=== PATIENT | female | born 1980 | race Caucasian/White ===

== ENCOUNTER 2020-10-31 16:08 | Inpatient (IN) | payer MEDICARE, MEDICAID, SELFPAY ==
--- NOTE | 2020-10-31 | ECG_ITS ---
Test Reason : ADMISSION Blood Pressure : / mmHG Vent. Rate : 061 BPM Atrial Rate : 061 BPM P-R Int : 150 ms QRS Dur : 096 ms QT Int : 436 ms P-R-T Axes : 007 080 048 degrees QTc Int : 438 ms Normal sinus rhythm Normal ECG No previous ECGs available Referred By: Melida Little Electronically Signed By:SHIVAM MOREJON
[2020-10-31 17:41] VITALS: BP 105/70; PULSE 83; TEMP 36.4
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
[2020-10-31 18:06] VITALS: BMI 24.4
--- NOTE | 2020-10-31 20:43 | PC.NURSE ---
[facility] pharmacy contacted to verify medications. Pharmacist reported last prescription filled was for Narcan nasal spray on 07/19/2019. [facility] has no record of Eliquis or other blood thinner. Pt. reports she was prescribed eliquis by Dr. Umana in [place] for a history of blood clots. She stated that she hasn't used it in a long time, approximately 2 years ago. Pt. reports she has not filled any prescriptions at [facility] for over a year. Pt. reports she used to take ativan 1mg at bedtime. It was prescribed by a Dr. Anderson. Last taken over a year ago. Pt. reports the ativan helps her to sleep. scallop dredger provider notified of this information.
[2020-10-31] MEDS: LORazepam 1 MG TABLET PO (21:38)
--- NOTE | 2020-10-31 22:38 | PC.NURSE ---
Pt. found to have an IV in right wrist. bilingual call center representative provider Melida Little informed of IV. RN removed IV. Dry dressing placed over IV site. Skin warm and dry. No drainage or swelling. Pt. tolerated well. Pt. tearful, depressed and anxious after call from daughter. Pt. refused to see hospitalist and to have an EKG due to anxiety and mood lability. Pt. reports she will do both tomorrow. Pt. medicated with ativan 1mg PO at 2138 with positive effect. Pt. appears to be asleep on safety checks.
[2020-11-01] MEDS: LORazepam 1 MG TABLET PO ×2 (03:20→23:15)
[2020-11-01] MEDS: hydrOXYzine HCL 25 MG TABLET PO (04:07)
--- NOTE | 2020-11-01 06:22 | PM.EVENT ---
Event Note Date of Service: 11/01/20 Event Note: Attempted to see patient, patient was not feeling well and did not want a see me If you need us to re-evaluate patient please re-consult
[2020-11-01 08:32] LABS: MANUAL DIFF FLAG NO
[2020-11-01 08:34] LABS: Basophils Percent Auto 0.2 % (0-2); Eosinophils Absolute Auto 0.1 X10*3/uL (0.0-0.4); Eosinophils Percent Auto 1.7 % (0-4); Hematocrit 39.8 % (37-47); Hemoglobin 13.3 g/dl (12.0-16.0); Imm Gran Abs Auto 0.02 X10*3/uL (0.00-0.03); Imm Gran Pct Auto 0.4 % (0.0-0.4); Lymphocytes Absolute Auto 1.9 X10*3/uL (1.2-4.9); Mean Corpuscular HGB Conc 33.4 g/dl (31.0-35.0); Mean Corpuscular Hemoglobin 28.9 pg (27.0-33.0); Mean Corpuscular Volume 86.3 fL (80-98); Mean Platelet Volume 11.5 fL (9.4-12.3); Monocytes Absolute Auto 0.3 X10*3/uL (0.1-1.2); Monocytes Percent Auto 5.5 % (2-11); Neutrophils Absolute Auto 2.9 X10*3/uL (2.0-8.3); Neutrophils Percent Auto 55.2 % (45-73); Platelet Count 154 X10*3/uL (160-400); Red Blood Count 4.61 X10*6/uL (4.20-5.50); Red Cell Distribution Width 13.6 % (11.0-16.0); White Blood Count 5.2 X10*3/uL (4.8-10.8)
[2020-11-01 09:04] LABS: Alanine Aminotransferase 15 U/L (0-31); Alkaline Phosphatase 52 U/L (39-117); Anion Gap 12 (12-20); Aspartate Amino Transferase 14 U/L (5-31); Bilirubin Total 0.8 mg/dL (0.0-1.0); Blood Urea Nitrogen 19 mg/dL (9-16); Carbon Dioxide 24 mmol/L (22-29); Chloride 107 mmol/L (96-108); Cholesterol 192 mg/dL; Creatinine Clr Calc Pharmacy 100.9; Estimated Glomerular Filt Rate > 60; Glucose Fasting 75 mg/dL (60-99); HDL Cholesterol 40 mg/dL; LDL Cholesterol Calculated 134 mg/dl; Potassium 3.9 mmol/L (3.3-5.1); Sodium 139 mmol/L (135-145); Total Protein 6.4 g/dL (6.5-8.0); Triglycerides 92 mg/dL
[2020-11-01 09:24] LABS: Free T4 (Free Thyroxine) 0.87 ng/dL (0.71-1.85); Thyroid Stimulating Hormone 0.68 uIU/mL (0.32-4.0)
[2020-11-01 09:39] LABS: Estimated Average Glucose 94 mg/dL; Hemoglobin A1c % 4.9 %
[2020-11-01 10:10] LABS: Folate 10.8 ng/mL (> or = 4.0); Vitamin B12 450 pg/mL (200-900)
--- NOTE | 2020-11-01 10:25 | P.PNPSI_ITS ---
Subjective Subjective Date of Service: 11/01/20 Reason For Visit: unspecified depressive disorder Diagnostics Vital Signs (24Hr): Vital Signs - 24 hr 10/31/20 17:41 Temperature 97.5 F Pulse Rate 83 Blood Pressure 105/70 Body Mass Index 24.4 Labs Results: 11/01/20 08:22 11/01/20 08:23 Labs: Laboratory Results - last 48 hr 11/01/20 11/01/20 11/01/20 08:22 08:23 08:23 WBC 5.2 RBC 4.61 Hgb 13.3 Hct 39.8 MCV 86.3 MCH 28.9 MCHC 33.4 RDW 13.6 Plt Count 154 L MPV 11.5 Immature Gran % (Auto) 0.4 Neut % (Auto) 55.2 Lymph % (Auto) 37.0 [place] % (Auto) 5.5 Eos % (Auto) 1.7 Baso % (Auto) 0.2 Lymph # (Auto) 1.9 [place] # (Auto) 0.3 Eos # (Auto) 0.1 Baso # (Auto) 0.0 Abs Immat Gran (auto) 0.02 Absolute Neuts (auto) 2.9 Absolute Nucleated RBC 0.000 Nucleated RBC % (auto) 0.0 Sodium 139 Potassium 3.9 Chloride 107 Carbon Dioxide 24 Anion Gap 12 BUN 19 H Creatinine 0.68 Estim Creat Clear Calc 100.9 Estimated GFR > 60 Fasting Glucose 75 Estimat Average Glucose 94 Hemoglobin A1c % 4.9 Calcium 9.0 Magnesium 2.0 Total Bilirubin 0.8 AST 14 ALT 15 Alkaline Phosphatase 52 Total Protein 6.4 L Albumin 4.0 Triglycerides 92 Cholesterol 192 LDL Cholesterol, Calc 134 HDL Cholesterol 40 Vitamin B12 Folate TSH 0.68 Free T4 0.87 11/01/20 08:23 WBC RBC Hgb Hct MCV MCH MCHC RDW Plt Count MPV Immature Gran % (Auto) Neut % (Auto) Lymph % (Auto) [place] % (Auto) Eos % (Auto) Baso % (Auto) Lymph # (Auto) [place] # (Auto) Eos # (Auto) Baso # (Auto) Abs Immat Gran (auto) Absolute Neuts (auto) Absolute Nucleated RBC Nucleated RBC % (auto) Sodium Potassium Chloride Carbon Dioxide Anion Gap BUN Creatinine Estim Creat Clear Calc Estimated GFR Fasting Glucose Estimat Average Glucose Hemoglobin A1c % Calcium Magnesium Total Bilirubin AST ALT Alkaline Phosphatase Total Protein Albumin Triglycerides Cholesterol LDL Cholesterol, Calc HDL Cholesterol Vitamin B12 450 Folate 10.8 TSH Free T4 Medications Medications Current Medications Generic Name Dose Route Start Last Admin Trade Name Freq PRN Reason Stop Dose Admin Al Hydroxide/Mg Hydroxide 30 ml 10/31/20 18:09 Magnesium Hydrox/Alum Hydrox 30 Ml Oral.Susp PO Q6H PRN Heartburn/Nausea Hydroxyzine HCl 25 mg 10/31/20 18:09 11/01/20 04:07 Hydroxyzine Hcl 25 Mg Tablet PO 25 mg BEDTIME PRN Administration Anxiety Lorazepam 1 mg 10/31/20 21:11 11/01/20 03:20 Lorazepam 1 Mg Tablet PO 1 mg Q6H PRN Administration Anxiety Magnesium Hydroxide 30 ml 10/31/20 18:09 Milk Of Magnesia 30 Ml Oral.Susp PO DAILY PRN Constipation Trazodone HCl 50 mg 10/31/20 18:09 Trazodone Hcl 50 Mg Tablet PO BEDTIME PRN Insomnia Allergies Allergies Allergy/AdvReac Type Severity Reaction Status Date / Time heparin Allergy Intermediate Unknown Verified 10/31/20 17:38 Assessment & Plan Greater than 50% of the session was spent on counseling and/or coordination of care
--- NOTE | 2020-11-01 10:27 | P.HPPS_ITS ---
HPI Chief Complaint: unspecified depressive disorder Sources of Information: patient interviewed, chart reviewed and crisis/core team assessment reviewed HPI Subjective Notes: [place] Warning and Conditional Voluntary Narrative: Patient is a 40-year-old female with history of mood lability who presents after intentional overdose with suicidal intent. Patient is lying in bed with her eyes closed. She is not impolite but says she has a migraine headache and does not want to talk right now, saying that keeping her eyes closed and rest or really the only things that help her resolve. [employer] Commissioner offered medication for headache but patient declined. Though she said she did not want to talk, she was willing to say that she is no longer suicidal. She says that she does not abuse alcohol and only has 2 drinks a given night and only does that twice a week; she reports she took a half bottle of benzos in overdose attempt however she denies using benzodiazepines daily. Patient denies other drug abuse. She endorses auditory hallucinations but only when she is mad... or drinking alcohol, or emotionally upset. She reports she has not been on Eliquis in a year however she is not interested in taking that right now. Patient intermittently looked at speech writer but closed her eyes again and said something to the effect of I am sorry but just can not talk right now. Interview concluded. Patient is currently not a reliable historian. ED note says that patient made concerning statements on-line. When her friend went to find her she found patient unresponsive outside of her apartment and apparently took her to the emergency room. Patient reported she drank alcohol and took a handful pills in a suicide attempt. It is reported she said she was angry she did not . Past Psychiatric History: Deferred until patient can participate in interview Medical Evaluation Reviewed: Hospitalist Ezequiel Pending [facility] Medical History (Updated 11/01/20 @ 16:52 by Johnathan Lux MD) Depression Family History: Unknown; Deferred for now Social History: Apparently patient lives alone in her own apartment Substance History: Unknown; deferred Trauma History: Unknown; deferred Diagnostics Vital Signs (24Hr): Vital Signs - 24 hr 10/31/20 17:41 Temperature 97.5 F Pulse Rate 83 Blood Pressure 105/70 Body Mass Index 24.4 Labs Results: 11/01/20 08:22 11/01/20 08:23 Labs: Laboratory Results - last 48 hr 11/01/20 11/01/20 11/01/20 08:22 08:23 08:23 WBC 5.2 RBC 4.61 Hgb 13.3 Hct 39.8 MCV 86.3 MCH 28.9 MCHC 33.4 RDW 13.6 Plt Count 154 L MPV 11.5 Immature Gran % (Auto) 0.4 Neut % (Auto) 55.2 Lymph % (Auto) 37.0 [place] % (Auto) 5.5 Eos % (Auto) 1.7 Baso % (Auto) 0.2 Lymph # (Auto) 1.9 [place] # (Auto) 0.3 Eos # (Auto) 0.1 Baso # (Auto) 0.0 Abs Immat Gran (auto) 0.02 Absolute Neuts (auto) 2.9 Absolute Nucleated RBC 0.000 Nucleated RBC % (auto) 0.0 Sodium 139 Potassium 3.9 Chloride 107 Carbon Dioxide 24 Anion Gap 12 BUN 19 H Creatinine 0.68 Estim Creat Clear Calc 100.9 Estimated GFR > 60 Fasting Glucose 75 Estimat Average Glucose 94 Hemoglobin A1c % 4.9 Calcium 9.0 Magnesium 2.0 Total Bilirubin 0.8 AST 14 ALT 15 Alkaline Phosphatase 52 Total Protein 6.4 L Albumin 4.0 Triglycerides 92 Cholesterol 192 LDL Cholesterol, Calc 134 HDL Cholesterol 40 Vitamin B12 Folate TSH 0.68 Free T4 0.87 11/01/20 08:23 WBC RBC Hgb Hct MCV MCH MCHC RDW Plt Count MPV Immature Gran % (Auto) Neut % (Auto) Lymph % (Auto) [place] % (Auto) Eos % (Auto) Baso % (Auto) Lymph # (Auto) [place] # (Auto) Eos # (Auto) Baso # (Auto) Abs Immat Gran (auto) Absolute Neuts (auto) Absolute Nucleated RBC Nucleated RBC % (auto) Sodium Potassium Chloride Carbon Dioxide Anion Gap BUN Creatinine Estim Creat Clear Calc Estimated GFR Fasting Glucose Estimat Average Glucose Hemoglobin A1c % Calcium Magnesium Total Bilirubin AST ALT Alkaline Phosphatase Total Protein Albumin Triglycerides Cholesterol LDL Cholesterol, Calc HDL Cholesterol Vitamin B12 450 Folate 10.8 TSH Free T4 Meds/Allergies Meds Home Medications Acetaminophen (Acetaminophen 325 Mg Tablet) 650 mg PO Q6H PRN PRN Reason: pain/headache Last Admin: 11/01/20 15:07 Dose: 650 mg Documented by: Al Hydroxide/Mg Hydroxide (Magnesium Hydrox/Alum Hydrox 30 Ml Oral.Susp) 30 ml PO Q6H PRN PRN Reason: Heartburn/Nausea Hydroxyzine HCl (Hydroxyzine Hcl 25 Mg Tablet) 25 mg PO BEDTIME PRN PRN Reason: Anxiety Last Admin: 11/01/20 04:07 Dose: 25 mg Documented by: Lorazepam (Lorazepam 1 Mg Tablet) 1 mg PO Q6H PRN PRN Reason: Anxiety Last Admin: 11/01/20 03:20 Dose: 1 mg Documented by: Magnesium Hydroxide (Milk Of Magnesia 30 Ml Oral.Susp) 30 ml PO DAILY PRN PRN Reason: Constipation Trazodone HCl (Trazodone Hcl 50 Mg Tablet) 50 mg PO BEDTIME PRN PRN Reason: Insomnia Allergies Allergies Allergy/AdvReac Type Severity Reaction Status Date / Time heparin Allergy Intermediate Unknown Verified 10/31/20 17:38 Mental Status Exam Mental Status Exam Narrative: Pt is alert and oriented; pt lying in bed with eyes closed; behavior is u ncooperative; dressed: under sheets; mood is described as not good and affect congruent; limted eye contact; Speech is slowed, intermittent; not pressured; psychomotor retardation present; thought process is organized and goal directed. Thought content is on dealing with headache; cannot at this time assess for delusional content, paranoid ideations or grandiosity; denies any SI/HI. There is no evidence of perceptual disturbance. ?Patients insight and judgment are impaired. Assessment & Plan Assessment & Plan (1) Depression: Status: Acute Code(s): F32.9 - Major depressive disorder, single episode, unspecified Assessment and Plan: IMPRESSION: Patient is a 40-year-old female with history of mood lability who presents after intentional overdose with suicidal intent. Currently patient is not a reliable historian as she is dealing with a migraine headache and did not feel up to participating in interview. Patient currently denies SI; denies drug abuse or alcohol abuse; denies auditory hallucinations except when emotionally upset. ED note reports intentional overdose with alcohol and pills which patient says were benzos, though she denies taking them daily. Patient admitted for safety and observation. Currently will diagnose her with depression, unspecified until history can be better clarified PLAN: Patient initially signed CV Patient then signed 3 day Acetaminophen added for headache Patient has been off Eliquis for over year; currently she does not want to restart her. Will revisit this again when she is more open to talking Informed Consent: understands Reason for continued inpatient stay Substantial Risk for: harm to self
[2020-11-01 14:10] VITALS: BP 103/63; PULSE 56
[2020-11-01] MEDS: Acetaminophen 325 MG TABLET 650 MG PO (15:07)
[2020-11-01 18:18] VITALS: BP 110/69; PULSE 60; RESP 16; TEMP 36.3; O2SAT 99
[2020-11-01] MEDS: traZODone HCL 50 MG TABLET PO (23:15)
[2020-11-02] MEDS: LORazepam 1 MG TABLET PO (05:35)
[2020-11-02 06:00] VITALS: BP 130/67; PULSE 72; RESP 16; TEMP 36.3; O2SAT 97
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
[2020-11-02] MEDS: Acetaminophen 325 MG TABLET 650 MG PO (11:36)
[2020-11-02] MEDS: hydrOXYzine HCL 25 MG TABLET PO (11:36)
--- NOTE | 2020-11-02 16:21 | PM.IMCN ---
History of Present Illness Data of Consult Service Date: 11/02/20 Primary Care Provider: Unknown Physician HPI Reason for consult: Medical evaluation A a 40 years old lady with PMH of depression who presented to the hospital after intentional overdose with suicidal intent. The patient was seen in her room. She reported that she has no medical problems and she did not see a physician in years. She does not take any medication regularly. Denies alcohol intake. Presented to the hospital after taking benzos in overdose attempt. During the interview I noticed her elbows rashes. When I asked about as he says he has psoriasis but she does not take any medication for it she did not see any doctor in years. She is not the best historian. Review of Systems Review of Systems: No fever, chills or weakness No chest pain, palpitation No shortness of breath or coughing No abdominal pain, nausea or vomiting No urinary symptoms No any rash or wounds PMFSH Medical History Depression Migraine Social History Household Members: Significant Other Housing: House Do you presently have visiting nurse or other home services: No Patient Tobacco Use Status: Current everyday Tobacco user Tobacco use type: Cigarette Cigarette Packs Per Day: 2 Cigarettes Per Day: 40.0 Smoked in Last 30 Days: Yes e-Cigarette/Vaping Use: Never Used Patient Interested in Nicotine Replacement: Yes Patient Given Instructions on How to Stop Smoking: No Second Hand Smoke Exposure: No Use of substances other than those prescribed or required for medical reasons: No Currently Displaying Signs/Symptoms of Drug Intoxication Withdrawal: No Have you been hit, kicked, punched, or otherwise hurt by someone within the past year? If so, by whom?: No Do you feel safe in your current relationship?: Yes Is there a partner from a previous relationship who is making you feel unsafe now?: No Are you made to feel afraid or neglected: No Advance Directives: No Advance Directives Information Provided: No Do you have thoughts of harming others: None Do you have a plan to hurt others: No Plan Recently lost weight without trying: Yes Eating poorly because of decreased appetite: No Nutrition Risks: No Nutritional Risk Patient : No : No Poor oral hygiene: No service: No Sexual orientation: Straight/Heterosexual Meds Allergies Allergy/AdvReac Type Severity Reaction Status Date / Time heparin Allergy Intermediate Unknown Verified 10/31/20 17:38 Active Medications: Current Medications Generic Name Dose Route Start Last Admin Trade Name Freq PRN Reason Stop Dose Admin Acetaminophen 650 mg 11/01/20 14:31 11/02/20 11:36 Acetaminophen 325 Mg Tablet PO 650 mg Q6H PRN Administration pain/headache Al Hydroxide/Mg Hydroxide 30 ml 10/31/20 18:09 Magnesium Hydrox/Alum Hydrox 30 Ml Oral.Susp PO Q6H PRN Heartburn/Nausea Apixaban 5 mg 11/03/20 09:00 Apixaban 5 Mg Tablet PO DAILY SONAM Hydroxyzine HCl 25 mg 10/31/20 18:09 11/02/20 11:36 Hydroxyzine Hcl 25 Mg Tablet PO 25 mg BEDTIME PRN Administration Anxiety Lorazepam 0.5 mg 11/02/20 14:29 Lorazepam 0.5 Mg Tablet PO BID PRN Anxiety Magnesium Hydroxide 30 ml 10/31/20 18:09 Milk Of Magnesia 30 Ml Oral.Susp PO DAILY PRN Constipation Prazosin HCl 1 mg 11/02/20 21:00 Prazosin Hcl 1 Mg Capsule PO BEDTIME [facility] Protocol Trazodone HCl 50 mg 10/31/20 18:09 11/01/20 23:15 Trazodone Hcl 50 Mg Tablet PO 50 mg BEDTIME PRN Administration Insomnia Trazodone HCl 50 mg 11/02/20 21:00 Trazodone Hcl 50 Mg Tablet PO BEDTIME [facility] Home Medications Medication Instructions Recorded Confirmed Last Taken Type No Known Home Meds 10/31/20 10/31/20 Unknown History Physical Exam Vital Signs and Narrative: Vital Signs: Last Vital Signs Temp 97.3 F 11/02/20 06:00 Pulse 72 11/02/20 06:00 Resp 16 11/02/20 06:00 BP 130/67 11/02/20 06:00 Pulse Ox 97 11/02/20 06:00 Body Mass Index 24.4 Const: Other: Constitutional : Alert, oriented, not in distress Neck : Normal inspection, Supple Cardiovascular : RRR, S1 S2, no lower extremity edema Respiratory : Good bilateral air entry, no crackles, wheezes or rhonchi Gastrointestinal: soft, lax, Normal bowel sounds, Non tender Skin : Warm, Dry, plaque like rashes in both elbows Neurological : Alert & oriented x3, No focal deficit Results Labs CBC and Chem 7: 11/01/20 08:22 11/01/20 08:23 Assessment and Plan (1) Suicidal intent: Status: Acute A a 40 years old lady with PMH of depression who presented to the hospital after intentional overdose with suicidal intent. Hospitalist team was asked to evaluate the patient for medical problems. Depression, suicidal intent Under the care psychiatry team No contraindication for usage of ECT therapy if needed for treatment Psoriasis Patient will need to follow-up with PCP or rheumatology as outpatient Thank you for the consult, please contact hospitalist team for any further questions.
[2020-11-02] MEDS: Apixaban 5 MG TABLET PO (16:26)
--- NOTE | 2020-11-02 16:38 | PC.NURSE ---
Pt verbalized that she is not interested in nicotine replacement at this time.
[2020-11-02 20:15] VITALS: BP 141/67; PULSE 85
[2020-11-02 20:31] VITALS: BP 141/67; PULSE 85
[2020-11-02] MEDS: traZODone HCL 50 MG TABLET PO (20:31)
[2020-11-02] MEDS: Prazosin HCL 1 MG CAPSULE PO (20:31)
[2020-11-03] MEDS: LORazepam 0.5 MG TABLET PO ×2 (02:33→14:17)
[2020-11-03] MEDS: traZODone HCL 50 MG TABLET PO ×2 (03:04→20:43)
[2020-11-03 06:00] VITALS: BP 118/83; PULSE 87; RESP 16; TEMP 36.1; O2SAT 99
[2020-11-03] MEDS: Amphetamine Mixed Salts 10 MG TABLET PO ×2 (08:51→14:17)
--- NOTE | 2020-11-03 10:08 | P.PNPSI_ITS ---
Subjective Subjective Date of Service: 11/03/20 Reason For Visit: unspecified depressive disorder Interim History: Pt seen on 11/03/20 Patient reports feeling better. She says she still depressed but definitely feels the depression lifting; she denies any SI at all. Patient says she is eag er to get back into therapy and is grateful that this is being set up by social Work. Patient reported trouble sleeping last night although she fell asleep initially with trazodone. She woke up thinking about her life, her family. She said she has been feeling sad about the fact that she upset her family, but she does not see this as a negative thing and reports overall positive thoughts about working to fix this. Patient asked for extra p.r.n. trazodone for help with sleep. She also agrees to increase in prazosin since she had a nightmare last night; she says the 15 minutes bed checks are also triggering for her since it relates to her history of trauma denies any medication side effects. Patient asks about quitting smoking and says that Wellbutrin worked very well for her in the past, helping her fully quit. She also said it helped with her mood and that her stock or delivery clerk Dr. Umana had okayed Wellbutrin for her, preferring this over the nicotine patch. Membership Manager asked patient about Eliquis since hospitalist commented that it was unclear the history of this medication since there are not any records of it and recommended holding it for now. She said that Dr. Umana gave her about 8 months worth of samples. She was supposed to then go to her PCP for follow-up however she missed the appointment and with her depression increasing, stopped caring about her health and just let it go. She understands her reasoning about holding this medication and says she has an upcoming appointment with Dr. Umana this November, that she's been off it for a year so far and will be fine; she said she has been taking aspirin daily at home for awhile as replacement. Membership Manager encouraged pt to call his office and see if he wants to restart her before her appointment, which she said she'd do Mental Status Exam Mental Status Exam Narrative: ?Pt is alert and oriented; behavior is cooperative, friendly and calm;?in hospital gown, hair pulled back neatly, good hygiene; mood is described as better and affect noticeable brighter, congruent; appropriate eye contact; Speech is normal rate, volume and prosody; no psychomotor retardation/agitation; thought process is organized, linear and goal directed. Thought content is on dealing discharge, aftercare; no delusional content, paranoid ideations or grandiosity; denies any SI/HI. There is no evidence of perceptual disturbance. ?Patients insight and judgment are intact Diagnostics Vital Signs (24Hr): Vital Signs - 24 hr 11/02/20 20:15 11/02/20 20:31 11/03/20 06:00 Temperature 96.9 F Pulse Rate 85 85 87 Respiratory Rate 16 Blood Pressure 141/67 H 141/67 H 118/83 Pulse Oximetry 99 Body Mass Index 24.4 Labs Results: 11/01/20 08:22 11/01/20 08:23 Labs: Laboratory Results - last 48 hr 11/01/20 08:23 Vitamin B12 450 Folate 10.8 Medications Medications Current Medications Generic Name Dose Route Start Last Admin Trade Name Freq PRN Reason Stop Dose Admin Acetaminophen 650 mg 11/01/20 14:31 11/02/20 11:36 Acetaminophen 325 Mg Tablet PO 650 mg Q6H PRN Administration pain/headache Al Hydroxide/Mg Hydroxide 30 ml 10/31/20 18:09 Magnesium Hydrox/Alum Hydrox 30 Ml Oral.Susp PO Q6H PRN Heartburn/Nausea Amphetamine/Dextroamphetamine 10 mg 11/03/20 08:30 11/03/20 08:51 Amphetamine Mixed Salts 10 Mg Tablet PO 10 mg BID@0830,1330 SONAM Administration Hydroxyzine HCl 25 mg 10/31/20 18:09 11/02/20 11:36 Hydroxyzine Hcl 25 Mg Tablet PO 25 mg BEDTIME PRN Administration Anxiety Lorazepam 0.5 mg 11/02/20 14:29 11/03/20 02:33 Lorazepam 0.5 Mg Tablet PO 0.5 mg BID PRN Administration Anxiety Magnesium Hydroxide 30 ml 10/31/20 18:09 Milk Of Magnesia 30 Ml Oral.Susp PO DAILY PRN Constipation Prazosin HCl 1 mg 11/02/20 21:00 11/02/20 20:31 Prazosin Hcl 1 Mg Capsule PO 1 mg BEDTIME SONAM Administration Protocol Trazodone HCl 50 mg 10/31/20 18:09 11/03/20 03:04 Trazodone Hcl 50 Mg Tablet PO 50 mg BEDTIME PRN Administration Insomnia Trazodone HCl 50 mg 11/02/20 21:00 11/02/20 20:31 Trazodone Hcl 50 Mg Tablet PO 50 mg BEDTIME OSNAM Administration Allergies Allergies Allergy/AdvReac Type Severity Reaction Status Date / Time heparin Allergy Intermediate Unknown Verified 10/31/20 17:38 Assessment & Plan Assessment & Plan (1) Migraine: Status: Acute Code(s): G43.909 - Migraine, unspecified, not intractable, without status migrainosus (2) MDD (major depressive disorder), recurrent episode, severe: Status: Acute Code(s): F33.2 - Major depressive disorder, recurrent severe without psychotic features (3) Chronic post-traumatic stress disorder (PTSD): Status: Acute Code(s): F43.12 - Post-traumatic stress disorder, chronic (4) Blood clotting disorder: Status: Chronic Code(s): D68.9 - Coagulation defect, unspecified (5) ADHD (attention deficit hyperactivity disorder), inattentive type: Status: Suspected Code(s): F90.0 - Attention-deficit hyperactivity disorder, predominantly inattentive type Assessment and Plan: IMPRESSION: Patient is a 40-year-old female with history of mood lability who presents after intentional overdose with suicidal intent. Currently patient is not a reliable historian as she is dealing with a migraine headache and did not feel up to participating in interview. Patient currently denies SI; denies drug abuse or alcohol abuse; denies auditory hallucinations except when emotionally upset. ED note reports intentional overdose with alcohol and pills which patient says were benzos, though she denies taking them daily. Patient admitted for safety and observation. Patient meets criteria for MDD, recurrent, severe without psychotic features which is currently in partial remission. Patient also has PTSD from both childhood and adult trauma. She agreed to start on Prazosin for nightmares. Patient also likely has ADHD/ADD for which she was receiving Adderall extended release which was reportedly very helpful. Patient reports that while she has been depressed and did attempt suicide, her suicidal ideation has fully resolved. She said it was the 1st time she ever had such thoughts; patient reports feeling safe in stable and regrets her actions; her 17-year-old daughter whom she deeply loves is a strong protective factor. 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 Patient has chronic blood clotting disorder; though she has a specialist etiology remains unknown. This makes some medication management more complex Patient's mood has improved and though depression remains, she has been feeling much better, hopeful and future oriented. She consistently denies any SI, is regretful and feels confident that she will not ever attempt this again (no history of prior attempts or SI) and is grateful she is doing better. Patient is not in imminent risk for harm to self or others and her request for discharge tomorrow will be honored. PLAN: Patient initially signed CV Patient then signed 3 day which she later retracted Will likely hold Eliquis Increased to prazosin 2 mg at bedtime for nightmares Continue trazodone 50 mg q.h.s. for insomnia with repeat dose Adderall 30 mg extended release daily for ADHD symptoms Ativan 0.5 mg daily p.r.n. for anxiety Will discuss other medication options for anxiety and depression Acetaminophen added for headache Greater than 50% of the session was spent on counseling and/or coordination of care Reason for contiued inpatient stay Substantial Risk for: stable for discharge
[2020-11-03] MEDS: Acetaminophen 325 MG TABLET 650 MG PO (10:49)
[2020-11-03] MEDS: Apixaban 5 MG TABLET PO (14:17)
[2020-11-03] MEDS: buPROPion HCl XL 150 MG TAB.ER.24H PO (14:17)
[2020-11-03] MEDS: Hydrocortisone 1 % Cream 28.35 GM TUBE 1 APPL TOPICAL (14:21)
[2020-11-03 17:15] VITALS: BP 114/69; PULSE 77; RESP 18; TEMP 36.3; O2SAT 97
[2020-11-03 20:42] VITALS: BP 103/60; PULSE 77
[2020-11-03] MEDS: Prazosin HCL 1 MG CAPSULE 2 MG PO (20:42)
[2020-11-04] MEDS: traZODone HCL 50 MG TABLET PO (01:58)
[2020-11-04] MEDS: LORazepam 0.5 MG TABLET PO (04:03)
[2020-11-04 06:00] VITALS: BP 117/74; PULSE 69; RESP 16; TEMP 35.9; O2SAT 99
[2020-11-04] MEDS: buPROPion HCl XL 150 MG TAB.ER.24H PO (08:57)
[2020-11-04] MEDS: Amphetamine Mixed Salts 10 MG TABLET PO (08:57)
[2020-11-04] MEDS: Hydrocortisone 1 % Cream 28.35 GM TUBE 1 APPL TOPICAL (08:57)
--- NOTE | 2020-11-04 10:14 | P.DS_ITS ---
DS: Providers Provider Date of Service: 11/04/20 Date of admission: 10/31/20 16:08 Date of discharge: 11/04/20 Primary care physician: Unknown Physician Attending physician on admission: Johnathan Lux Consults: 10/31/20 18:09 Consult to Hospitalist Routine Consulting Provider: Hospitalist Reason For Exam: transfer admission 11/02/20 15:06 Consult to Hospitalist Routine Consulting Provider: Hospitalist Reason For Exam: admission phyiscal Attending physician on discharge: Johnathan Lux DS: Diagnosis Discharge Diagnosis (1) MDD (major depressive disorder), recurrent episode, severe: Status: Acute (2) Chronic post-traumatic stress disorder (PTSD): Status: Acute (3) Blood clotting disorder: Status: Chronic (4) Migraine: Status: Acute (5) ADHD (attention deficit hyperactivity disorder), inattentive type: Status: Suspected DS: Medications Discharge Medications Home Medications: Home Medications Medication Instructions Recorded Confirmed No Known Home Meds 10/31/20 10/31/20 Previous Rx's Medication Instructions Recorded bupropion HCl 150 mg 24 hr tablet, 150 mg PO DAILY 30 Days #30 tab 11/04/20 extended release dextroamphetamine-amphetamine ER 30 mg PO DAILY 15 Days #15 cap 11/04/20 30 mg 24hr capsule,extend release (Adderall XR) dextroamphetamine-amphetamine ER 30 mg PO DAILY 15 Days #15 cap 11/04/20 30 mg 24hr capsule,extend release (Adderall XR) lorazepam 0.5 mg tablet 0.5 mg PO DAILY PRN 15 Days #15 tab 11/04/20 lorazepam 0.5 mg tablet (Ativan) 0.5 mg PO DAILY PRN 15 Days #15 tab 11/04/20 prazosin 1 mg capsule 2 mg PO BEDTIME 30 Days #60 cap 11/04/20 trazodone 50 mg tablet See Rx Instructions .ROUTE 11/04/20 .COMPLEX PRN 30 Days #60 tab Mental Status Exam Mental Status Exam Narrative: ?Pt is alert and oriented; behavior is cooperative, friendly and calm;?in hospital gown, neatly done hair and adequate hygiene; mood is described as good and affect noticeable brighter, congruent; appropriate eye contact; Speech is normal rate, volume and prosody; no psychomotor retardation/agitation; thought process is organized, linear and goal directed. Thought content is on dealing discharge, aftercare; no delusional content, paranoid ideations or grandiosity; denies any SI/HI. There is no evidence of perceptual disturbance. ?Patients insight and judgment are intact Data Data Completed and Pending Completed studies during hospitalization [Text1]: 11/01/20 11/01/20 11/01/20 08:22 08:23 08:23 WBC 5.2 RBC 4.61 Hgb 13.3 Hct 39.8 MCV 86.3 MCH 28.9 MCHC 33.4 RDW 13.6 Plt Count 154 L MPV 11.5 Immature Gran % (Auto) 0.4 Neut % (Auto) 55.2 Lymph % (Auto) 37.0 [place] % (Auto) 5.5 Eos % (Auto) 1.7 Baso % (Auto) 0.2 Lymph # (Auto) 1.9 [place] # (Auto) 0.3 Eos # (Auto) 0.1 Baso # (Auto) 0.0 Abs Immat Gran (auto) 0.02 Absolute Neuts (auto) 2.9 Absolute Nucleated RBC 0.000 Nucleated RBC % (auto) 0.0 Sodium 139 Potassium 3.9 Chloride 107 Carbon Dioxide 24 Anion Gap 12 BUN 19 H Creatinine 0.68 Estim Creat Clear Calc 100.9 Estimated GFR > 60 Fasting Glucose 75 Estimat Average Glucose 94 Hemoglobin A1c % 4.9 Calcium 9.0 Magnesium 2.0 Total Bilirubin 0.8 AST 14 ALT 15 Alkaline Phosphatase 52 Total Protein 6.4 L Albumin 4.0 Triglycerides 92 Cholesterol 192 LDL Cholesterol, Calc 134 HDL Cholesterol 40 Vitamin B12 Folate TSH 0.68 Free T4 0.87 11/01/20 08:23 WBC RBC Hgb Hct MCV MCH MCHC RDW Plt Count MPV Immature Gran % (Auto) Neut % (Auto) Lymph % (Auto) [place] % (Auto) Eos % (Auto) Baso % (Auto) Lymph # (Auto) [place] # (Auto) Eos # (Auto) Baso # (Auto) Abs Immat Gran (auto) Absolute Neuts (auto) Absolute Nucleated RBC Nucleated RBC % (auto) Sodium Potassium Chloride Carbon Dioxide Anion Gap BUN Creatinine Estim Creat Clear Calc Estimated GFR Fasting Glucose Estimat Average Glucose Hemoglobin A1c % Calcium Magnesium Total Bilirubin AST ALT Alkaline Phosphatase Total Protein Albumin Triglycerides Cholesterol LDL Cholesterol, Calc HDL Cholesterol Vitamin B12 450 Folate 10.8 TSH Free T4 DS: Summary Hospital Course Hospital Course: Patient is a 40-year-old female with history of mood lability who presents after intentional overdose with suicidal intent. Currently patient is not a reliable historian as she is dealing with a migraine headache and did not feel up to participating in interview.? Patient currently denies SI; denies drug abuse or alcohol abuse; denies auditory hallucinations except when emotionally upset.? ED note reports intentional overdose with alcohol and pills which patient says were benzos, though she denies taking them daily.? Patient signed CV. Patient has no drug abuse history or prescription abuse history. She reports that she did abuse alcohol for several months after her brother's , drinking about 5 drinks a night; however this resolved after realizing it was not helpful and since then she only seldomly drinks alcohol and not more than 1 drink. On admission patient reported depression but said SI has fully resolved; she is feeling better and has some renewed hope, wanting to get back into therapy. Patient meets criteria for MDD, recurrent, severe without psychotic features which is currently in partial remission.? Patient also has PTSD from both childhood and adult trauma.? She agreed to start on Prazosin for nightmares.? Patient also has hx ADHD/ADD (confirmed by Dr. Umana) for which she was receiving Adderall extended release which was reportedly very helpful.? Patient reports that her suicidal ideation remains fully resolved (her 17-year-old daughter whom she deeply loves is a strong protective factor).? She was started on Adderall for ADHD; patient also asked for Wellbutrin since it it helped her with quitting smoking in the past and also helped her mood; this med was started to good effect. For continued trouble sleeping patient took trazodone 50 mg and sometimes a repeat 50 mg which was helpful. Patient was forthcoming in interviews; she was appropriate with staff and peers and remained in good behavioral and impulse control throughout her admission. She continued to report feeling safe, stable and hopeful.? 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 By the end of admission Patient's mood remained significantly improved, consistently w/out any SI and optimistic about staying safe and re- engaging in therapy. Patient is not in imminent risk for harm to self or others and her request for discharge tomorrow will be honored. Chronic blood clotting disorder -[employer] Manager spoke with dr. Umana on 11/04/20 regarding her history of clotting disorder.? Dr. Hinson reports that she was in fact on Eliquis however it was last given to her in 2015 and she was lost to follow-up.? He says she has an upcoming appointment with him on November 25.? Dr. Dong salcedo says that it is fine for her to remain on aspirin only until their next appointment. Time spent discussing smoking cessation with patient: 3 to 10 minutes Status at Discharge Functional status at discharge: independent ambulation Overall status at discharge: patient is back to baseline Time Spent with Patient Time attestation: Total time spent providing and/or coordinating discharge services: Time spent: Greater than 30 minutes Discharge Plan Discharge Patient Disposition: Home, Self-Care Discharge Diagnosis: MDD, recurrent, severe without psychotic symptoms, in partial remission Referrals: Clinical Support Options [Other] - 11/09/20 2:00 pm ([employer] [address] [employer] is Jac, he shall explore preferences of therapist upon completion. Medication provider (psychiatrist) appointment will be set up following intake.) [facility] [Other] - 11/05/20 10:00 am ( Keiko needs to present to this [facility] following discharge from [facility] to obtain a new primary care provider. Call for questions related to required documentation.) Physician,Unknown [Primary Care Provider] - 1 Week Discharge Medications: New prazosin 1 mg Capsule 2 mg PO BEDTIME 30 Days Qty: 60 RF: 0 bupropion HCl 150 mg Tablet Extended Release 24 Hr 150 mg PO DAILY 30 Days Qty: 30 RF: 0 dextroamphetamine-amphetamine [Adderall XR] 30 mg capsule,extended release 24hr 30 mg PO DAILY 15 Days Qty: 15 RF: 0 dextroamphetamine-amphetamine [Adderall XR] 30 mg capsule,extended release 24hr 30 mg PO DAILY 15 Days Qty: 15 RF: 0 lorazepam 0.5 mg Tablet 0.5 mg PO DAILY PRN (Reason: Anxiety) 15 Days Qty: 15 RF: 0 lorazepam [Ativan] 0.5 mg tablet 0.5 mg PO DAILY PRN (Reason: anxiety) 15 Days Qty: 15 RF: 0 trazodone 50 mg Tablet See Rx Instructions .ROUTE .COMPLEX PRN (Reason: Insomnia) 30 Days Qty: 60 RF: 0 aspirin 81 mg capsule 81 mg PO DAILY 21 Days Qty: 21 RF: 0 Discharge Orders: Discharge Order (Routine); Ordered 11/04/20 Ordered By: Johnathan Lux Diet: regular diet Activity on Discharge: As tolerated Stand Alone Forms: Patient Portal Discharge page Care Plan Goals: Maintain mood and safe behaviors Take medications as prescribed Continue to pursue sobriety Practice coping skills Continue with outpatient providers and reach out to them as needed Health Concerns: Mood stability and behaviors Blood clotting disorder Plan of Treatment: Follow up with your PCP/Director Of Valuation Dr. Umana and psychiatric provider regarding above concerns Take medications as prescribed Assessment: Risk assessment at time of discharge:? Patient was interviewed prior to discharge and found to be fully oriented and without any SI or HI. Patient has insight and demonstrates good judgment in terms of wanting to pursue treatment. Patient is not in imminent risk of harm to self or others and has a safety plan that includes presenting to the closest ER or calling 911 if feeling unsafe.? Patient has been observed closely by nursing and unit staff throughout admission; patient has not engaged in any behaviors that suggest dangerousness to self or others and has demonstrated appropriate behaviors and impulse control.
== END 2020-11-04 12:51 | disposition home or self-care (01) | DRG 885 ==
PROVIDERS: Clinical Nurse Specialist Psychiatric/Mental Health, Adult; Admitting Provider Psychiatry & Neurology Psychiatry; Visit Provider Psychiatry & Neurology Psychiatry
DX: F33.2 Major depressive disorder, recurrent severe without psychotic features (principal); R45.851 Suicidal ideations; D68.9 Coagulation defect, unspecified; F43.12 Post-traumatic stress disorder, chronic; L40.9 Psoriasis, unspecified; G43.909 Migraine, unspecified, not intractable, without status migrainosus; F90.0 Attention-deficit hyperactivity disorder, predominantly inattentive type; F17.210 Nicotine dependence, cigarettes, uncomplicated; Z71.6 Tobacco abuse counseling; Z79.82 Long term (current) use of aspirin; Z79.899 Other long term (current) drug therapy
CPT/HCPCS: 36415; 80053; 80061; 82607; 82746; 83036; 83735; 84439; 84443; 85025; 93005